=== PATIENT | male | born 1995 ===

== ENCOUNTER 2022-10-21 17:45 | Emergency (ER) | payer MEDICAID ==
[~2022-10-21] VITALS: Ht 195.5 cm; Wt 70.8 kg
[2022-10-21 18:15] LABS: BILIRUBIN,URINE NEGATIVE (NEGATIVE); CLARITY,URINE CLEAR; COLOR,URINE YELLOW; GLUCOSE, URINE (UA) NEGATIVE (NEGATIVE); KETONES,URINE NEGATIVE (NEGATIVE); LEUKOCYTE ESTERASE ,URINE NEGATIVE (NEGATIVE); NITRITE,URINE NEGATIVE (NEGATIVE); PROTEIN,URINE NEGATIVE (NEGATIVE)
[2022-10-21 18:27] LABS: BACTERIA,URINE TRACE /HPF; SQUAMOUS EPITHELIAL CELL,UR RARE /HPF
--- NOTE | 2022-10-21 18:31 | ED General ---
General Chief Complaint: General Problems/Pain Stated Complaint: NAUSEA/BLURRY VISION/WEIGHT LOSS Nursing Triage Note: PATIENT ARRIVES TO ROOM 8 TODAY WITH A C/O BLURRED VISION, LOSS OF 15 LBS IN 2 DAYS, NECK AND UPPER BODY PAIN AND NAUSEA W/O VOMITING THAT STARTED ABOUT ONE HOUR AGO. STATES HE DIDNT FEEL VERY WELL LAST NIGHT AND WHEN HE GOT HOME FROM WORK HE TOOK A KLONIPIN FOR HIS SYMPTOMS. Source of Information: Patient Exam Limitations: No Limitations History of Present Illness Date Seen by Provider: Oct 21, 2022 Time Seen by Provider: 18:15 Initial Comments Patient is a 27-year-old male history of anxiety prescribed clonazepam that he states he rarely uses who presents to the emergency room with a chief complaint of generalized malaise, fatigue, significant weight loss over the last several months. Patient lives in [place] and states he originally went to both [facility] and [facility] in [place] however the wait was too long so he decided to come to [place]. He states in the last couple of days he has developed pain in the anterior jaw that radiates down the front of his neck into his chest and down to his umbilicus. He has not taken anything for the pain. He states he is very fatigued. He states his peak weight was 200 pounds. He states he has been trying to maintain 175 but is now 155. This is unintentional weight loss. He states he had some diarrhea last week that did not continue. No black or bloody stools that he is aware of. He complains of urinary frequency without dysuria or urgency. No cough. No shortness of breath. No fevers or chills. He states he feels like he is always very cold and that his hair may be falling out. 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 His primary care in [place] is Dr. Camacho. He states he saw him about 3 months ago and needed some lab work but the office never followed back up with him. He states he is trying to eat about 3000 riri a day but continues to lose weight. Also complains of some blurry vision today. He feels a little off balance. No double vision, no headache. No significant family medical history. States that he quit using marijuana about a month ago. Does not drink daily alcohol does not smoke cigarettes. Timing/Duration: 1-2 Days, Other (months) Severity: Moderate Associated Systoms: Malaise, Weakness, Other (lethargy) Allergies and Home Medications Allergies Coded Allergies: No Known Drug Allergies (Unverified , 10/21/22) Patient Home Medication List Home Medication List Reviewed: Yes Review of Systems Review of Systems Constitutional: see HPI, malaise EENTM: blurred vision Respiratory: no symptoms reported Cardiovascular: chest pain Gastrointestinal: abdominal pain Musculoskeletal: no symptoms reported Skin: no symptoms reported Psychiatric/Neurological: Anxiety, Other (feels near syncopal/weak/balance issues) Past Yakngwc-Txokvx-Jvotog Hx Patient Social History Tobacco Use?: No Smoking Status: Former Smoker Use of E-Cig and/or Vaping dev: No Substance use?: Yes Substance type: Marijuana Substance frequency: Rarely Alcohol Use?: Yes Alcohol Frequency: Once in a while Immunizations Up To Date Influenza Vaccine Up-to-Date: No; Not Current First/Initial COVID19 Vaccinat: 2 shots 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 oz. kg; 18.00 BMI Method: General Appearance: No Apparent Distress, Thin Eyes: Bilateral Eye Normal Inspection, Bilateral Eye PERRL, Bilateral Eye EOMI HEENT: PERRL/EOMI, Pharynx Normal Neck: Full Range of Motion, Normal Inspection, Supple Respiratory: Lungs Clear, Normal Breath Sounds, No Accessory Muscle Use, No Respiratory Distress Cardiovascular: Regular Rate, Rhythm, Normal Peripheral Pulses (2+ radial) Gastrointestinal: Soft, Guarding (voluntary) Extremity: Normal Capillary Refill, Normal Inspection, Normal Range of Motion, Non Tender, No Calf Tenderness, No Pedal Edema Neurologic/Psychiatric: Alert, Oriented x3, No Motor/Sensory Deficits, artificial stone setter II- XII Norm as Tested, Other (flat affect; normal finger to nose; tongue is midlin e) Skin: Normal Color, Warm/Dry Progress/Results/Core Measures Suspected Sepsis SIRS Temperature: Pulse: 85 Respiratory Rate: 18 Laboratory Tests 10/21/22 18:30: White Blood Count 6.3 Blood Pressure 141 /83 Mean: 102 Laboratory Tests 10/21/22 18:30: Creatinine 0.86, Platelet Count 236, Total Bilirubin 1.0 Results/Orders Lab Results Laboratory Tests Test 10/21/22 17:59 10/21/22 18:10 10/21/22 18:30 Range/Units Glucometer 87 70-110 MG/DL Urine Color YELLOW Urine Clarity CLEAR Urine pH 6.0 5-9 Urine Specific [place] 1.020 1.016-1.022 Urine Protein NEGATIVE NEGATIVE Urine Glucose (UA) NEGATIVE NEGATIVE Urine Ketones NEGATIVE NEGATIVE Urine Nitrite NEGATIVE NEGATIVE Urine Bilirubin NEGATIVE NEGATIVE Urine Urobilinogen 0.2 < = 1.0 MG/DL Urine Leukocyte Esterase NEGATIVE NEGATIVE Urine RBC (Auto) NEGATIVE NEGATIVE Urine RBC NONE /HPF Urine WBC NONE /HPF Urine Squamous Epithelial Cells RARE /HPF Urine Crystals NONE /LPF Urine Bacteria TRACE /HPF Urine Casts NONE /LPF Urine Mucus NEGATIVE /LPF Urine Culture Indicated NO Urine Opiates Screen NEGATIVE NEGATIVE Urine Oxycodone Screen NEGATIVE NEGATIVE Urine Methadone Screen NEGATIVE NEGATIVE Urine Propoxyphene Screen NEGATIVE NEGATIVE Urine Barbiturates Screen NEGATIVE NEGATIVE Ur Tricyclic Antidepressants Screen NEGATIVE NEGATIVE Urine Phencyclidine Screen NEGATIVE NEGATIVE Urine Amphetamines Screen NEGATIVE NEGATIVE Urine Methamphetamines Screen NEGATIVE NEGATIVE Urine Benzodiazepines Screen NEGATIVE NEGATIVE Urine Cocaine Screen NEGATIVE NEGATIVE Urine Cannabinoids Screen POSITIVE H NEGATIVE White Blood Count 6.3 4.3-11.0 10^3/uL Red Blood Count 4.95 4.30-5.52 10^6/uL Hemoglobin 15.4 13.3-17.7 g/dL Hematocrit 42 40-54 % Mean Corpuscular Volume 84 80-99 fL Mean Corpuscular Hemoglobin 31 25-34 pg Mean Corpuscular Hemoglobin Concent 37 H 32-36 g/dL Red Cell Distribution Width 12.5 10.0-14.5 % Platelet Count 236 130-400 10^3/uL Mean Platelet Volume 9.1 9.0-12.2 fL Immature Granulocyte % (Auto) 0 % Neutrophils (%) (Auto) 69 42-75 % Lymphocytes (%) (Auto) 23 12-44 % Monocytes (%) (Auto) 7 0-12 % Eosinophils (%) (Auto) 1 0-10 % Basophils (%) (Auto) 1 0-10 % Neutrophils # (Auto) 4.3 1.8-7.8 10^3/uL Lymphocytes # (Auto) 1.4 1.0-4.0 10^3/uL Monocytes # (Auto) 0.5 0.0-1.0 10^3/uL Eosinophils # (Auto) 0.1 0.0-0.3 10^3/uL Basophils # (Auto) 0.0 0.0-0.1 10^3/uL Immature Granulocyte # (Auto) 0.0 0.0-0.1 10^3/uL Sodium Level 142 135-145 MMOL/L Potassium Level 3.6 3.6-5.0 MMOL/L Chloride Level 105 98-107 MMOL/L Carbon Dioxide Level 26 21-32 MMOL/L Anion Gap 11 5-14 MMOL/L Blood Urea Nitrogen 19 H 7-18 MG/DL Creatinine 0.86 0.60-1.30 MG/DL Estimat Glomerular Filtration Rate 122 BUN/Creatinine Ratio 22 Glucose Level 89 70-105 MG/DL Calcium Level 10.2 H 8.5-10.1 MG/DL Corrected Calcium 8.5-10.1 MG/DL Total Bilirubin 1.0 0.1-1.0 MG/DL Aspartate Amino Transf (AST/SGOT) 35 H 5-34 U/L Alanine Aminotransferase (ALT/SGPT) 33 0-55 U/L Alkaline Phosphatase 55 40-136 U/L Total Protein 7.4 6.4-8.2 GM/DL Albumin 5.0 H 3.2-4.5 GM/DL TSH [place] Testing 1.05 0.35-4.94 UIU/ML My Orders Orders - AUSTYN VILLASEÑOR MD Ed Iv/Invasive Line Start (10/21/22 18:31) Cbc With Automated Diff (10/21/22 18:31) Comprehensive Metabolic Panel (10/21/22 18:31) Thyroid Analyzer (10/21/22 18:31) Drug Screen Stat (Urine) (10/21/22 18:31) Ct Head Wo (10/21/22 19:55) Vital Signs/I&O 10/21/22 10/21/22 17:55 21:02 Temp 36.8 Pulse 85 85 Resp 18 18 B/P (MAP) 141/83 (102) 113/83 Pulse Ox 98 97 O2 Delivery Room Air Room Air Capillary Refill : Less Than 3 Seconds Blood Pressure Mean: 102 Progress Note : Time: 20:50 Progress Note Patient seen and evaluated by me. Evaluation today includes physical exam, CBC, chemistry, UA, urine drug screen, thyroid analyzer. Patient also had CT of the head noncontrast. Pertinent physical exam findings thin appearing 27-year-old male, seems slightly withdrawn, speaks in a quiet voice. Vital signs are stable. HEENT exam unremarkable. No palpable thyroid abnormality. Oral mucosa is moist. Heart is regular, lungs are clear. Abdomen is soft and nontender. He has no rashes. No neurologic deficits. Differential diagnosis based on history and physical exam hypothyroidism, metabolic derangement/diabetes, malignancy, poor nutrition secondary to drug use Labs independently reviewed by me. CBC is normal. Chemistry is unremarkable, urinalysis does not reveal any evidence of infection. Urine drug screen positive for THC. TSH is normal. CT scan of the head without contrast done secondary to patient's reported significant weight loss, blurry/abnormal vision and self-reported balance and coordination issues. He did not demonstrate any focal neurologic deficits, no ataxia. Low suspicion for thyroid disease based on normal TSH. Chemistry is normal not reflecting any significant dehydration or electrolyte imbalance. His blood sugar was normal. No concerning findings on CT for space-occupying lesion. He is quite thin but does not appear cachectic. He does have a primary care physician in [place] whom he has not seen in about 3 months. I strongly encouraged him to make a follow-up appointment. No significant concerning findings on this visit to the emergency department I did however advise him that the emergency room cannot identify all causes for rapid weight loss. I encouraged him to eat small frequent meals and to only drink fluids with his meals so that he does not feel full and not eat. Encouraged continued cessation of marijuana. Advised that maybe he start an acid registered pharmacy technician such as [id number] Pepcid or Prilosec. Patient verbalized understanding of the plan of care. All questions are sought and answered. Patient is stable for discharge. Diagnostic Imaging Diagonstic Imaging: CT Comments [facility], [place] NAME: ESTELA MCCARTHY MED REC#: [id number] PT STATUS: REG ER : 1995 PHYSICIAN: AUSTYN VILLASEÑOR MD ADMIT DATE: 10/21/22/ER Draft Date of Exam:10/21/22 CT HEAD WO EXAMINATION: CT head without contrast. TECHNIQUE: Multiple contiguous axial images were obtained through the brain without the use of intravenous contrast. All CT scans use one or more of the following dose optimizing techniques: automated exposure control, MA and/or KvP adjustment based on patient size and exam type or iterative reconstruction. HISTORY: Blurry vision, off balance COMPARISON: None available. FINDINGS: There is a patent cavum septum pellucidum which is a normal congenital variant. The ventricles and sulci are otherwise normal. No abnormal attenuation of brain parenchyma is present. No acute intracranial hemorrhage or abnormal extra-axial fluid collection is present. No hyperdense vessel. The calvarium is intact. The mastoid air cells are clear. The visualized paranasal sinuses are clear. The orbits are normal. IMPRESSION: No acute intracranial abnormality. Dictated on workstation # [id number] Dict: 10/21/222033 Trans: 10/21/222035 [facility] [id number] Interpreted by: CRISTINA WELLINGTON DO Electronically signed by: Departure Impression Primary Impression: Weakness Additional Impression: Weight loss, abnormal Disposition: 01 HOME, SELF-CARE Condition: Stable Departure-Patient Inst. Decision time for Depature: 20:57 Referrals: NO,LOCAL PHYSICIAN (PCP/Family) Primary Care Physician Patient Instructions: Minimize Weight Loss Add. Discharge Instructions: Please call and follow up with your primary care doctor next week. Your labs all look normal today (blood count, chemistry and liver functions, thyroid).. If you develop any new or concerning, emergent symptoms, please return to the Emergency Department for re-evaluation. AUSTYN VILLASEÑOR MD Oct 21, 2022 18:31
[2022-10-21 18:36] LABS: BASOPHILS % (AUTO) 1 % (0-10); EOSINOPHILS # (AUTO) 0.1 10^3/uL (0.0-0.3); EOSINOPHILS % (AUTO) 1 % (0-10); HEMATOCRIT 42 % (40-54); HEMOGLOBIN 15.4 g/dL (13.3-17.7); LYMPHOCYTES # (AUTO) 1.4 10^3/uL (1.0-4.0); LYMPHOCYTES % (AUTO) 23 % (12-44); MEAN CORPUSCULAR HEMOGLOBIN 31 pg (25-34); MEAN CORPUSCULAR HGB CONC 37 g/dL (32-36); MEAN CORPUSCULAR VOLUME 84 fL (80-99); MEAN PLATELET VOLUME 9.1 fL (9.0-12.2); MONOCYTES # (AUTO) 0.5 10^3/uL (0.0-1.0); MONOCYTES % (AUTO) 7 % (0-12); NEUTROPHILS # (AUTO) 4.3 10^3/uL (1.8-7.8); NEUTROPHILS % (AUTO) 69 % (42-75); PLATELET COUNT 236 10^3/uL (130-400); WHITE BLOOD COUNT 6.3 10^3/uL (4.3-11.0)
[2022-10-21 18:47] LABS: CHLORIDE 105 MMOL/L (98-107); POTASSIUM 3.6 MMOL/L (3.6-5.0); SODIUM 142 MMOL/L (135-145)
[2022-10-21 18:48] LABS: AMPHETAMINE SCREEN, URINE NEGATIVE (NEGATIVE); BARBITURATE SCREEN URINE NEGATIVE (NEGATIVE); BENZODIAZEPINES SCREEN URINE NEGATIVE (NEGATIVE); CANNABINOID SCREEN, URINE POSITIVE (NEGATIVE); COCAINE SCREEN URINE NEGATIVE (NEGATIVE); METHADONE STAT NEGATIVE (NEGATIVE); OPIATE SCREEN URINE NEGATIVE (NEGATIVE); OXYCODONE STAT NEGATIVE (NEGATIVE); PROPOXYPHENE STAT NEGATIVE (NEGATIVE); TRICYCLIC ANTIDEPRESSANTS SCRE NEGATIVE (NEGATIVE)
[2022-10-21 18:48] LABS: CALCIUM 10.2 MG/DL (8.5-10.1)
[2022-10-21 18:49] LABS: GLUCOSE 89 MG/DL (70-105); TOTAL PROTEIN 7.4 GM/DL (6.4-8.2)
[2022-10-21 18:50] LABS: CARBON DIOXIDE 26 MMOL/L (21-32)
[2022-10-21 18:52] LABS: ALKALINE PHOSPHATASE 55 U/L (40-136)
[2022-10-21 18:53] LABS: CREATININE SERUM 0.86 MG/DL (0.60-1.30); GFR ESTIMATED 122
[2022-10-21 18:54] LABS: BUN/CREATININE RATIO 22
[2022-10-21 18:56] LABS: ALANINE AMINOTRANSFERASE 33 U/L (0-55)
[2022-10-21 19:17] LABS: TSH (THYROID ANALYZER) 1.05 UIU/ML (0.35-4.94)
--- NOTE | 2022-10-21 20:37 | Diagnostic Imaging Report ---
EXAMINATION: CT head without contrast. TECHNIQUE: Multiple contiguous axial images were obtained through the brain without the use of intravenous contrast. All CT scans use one or more of the following dose optimizing techniques: automated exposure control, MA and/or KvP adjustment based on patient size and exam type or iterative reconstruction. HISTORY: Blurry vision, off balance COMPARISON: None available. FINDINGS: There is a patent cavum septum pellucidum which is a normal congenital variant. The ventricles and sulci are otherwise normal. No abnormal attenuation of brain parenchyma is present. No acute intracranial hemorrhage or abnormal extra-axial fluid collection is present. No hyperdense vessel. The calvarium is intact. The mastoid air cells are clear. The visualized paranasal sinuses are clear. The orbits are normal. IMPRESSION: No acute intracranial abnormality. Dictated by: Dictated on workstation # [id number]
[2022-10-21 21:02] VITALS: BP 113/83
== END 2022-10-21 21:06 | disposition home or self-care (01) ==
LOC: ER 17:48
DX: R53.1 Weakness (principal); R63.4 Abnormal weight loss; H53.8 Other visual disturbances; F41.9 Anxiety disorder, unspecified; Z79.899 Other long term (current) drug therapy; Z87.891 Personal history of nicotine dependence
CPT/HCPCS: 36415; 70450; 80053; 80306; 81000; 82947; 84443; 85025

== ENCOUNTER 2023-01-24 06:15 | Emergency (ER) | payer MEDICAID ==
[~2023-01-24] VITALS: Ht 195 cm; Wt 86.1 kg
--- NOTE | 2023-01-24 06:48 | ED Cardiac General ---
History of Present Illness General Chief Complaint: Chest Pain Stated Complaint: CHEST TIGHTNESS,LEFT ARM TIGHTNESS Nursing Triage Note: SINCE 3AM CHEST PAIN TIGHTNESS, WITH LEFT FORARM PAIN. DENIES SOB Source: patient Exam Limitations: no limitations History of Present Illness Date Seen by Provider: Jan 24, 2023 Time Seen by Provider: 06:34 Initial Comments Patient is a 27-year-old male who presents to the emergency room with a chief complaint of left-sided chest "tightness", left upper arm discomfort and left axillary pain. Patient states that it started around 3 AM. He was awake, not doing any activities. He denies any associated symptoms such as dizziness, lightheadedness, palpitations, shortness of breath, nausea or sweating. Nothing really makes the pain any better or any worse. He does not take any medications for the pain. He has no history of hypertension, diabetes or hyperlipidemia. He does not take any medications. He is not a smoker. He states he had a grandfather who from a heart attack in his late 50s. Patient denies any recent illnesses, congestion, fever. Currently rates the discomfort a "3". He is denying any medications for pain at this time. Does not want aspirin or Toradol. Timing/Duration: 4-6 hours Severity: mild Location: other (left chest upper arm and axilla) Activities at Onset: none NTG SL FLOOR SPACE ALLOCATOR: No ASA po FLOOR SPACE ALLOCATOR: No Associated Systoms: Denies Symptoms Allergies and Home Medications Allergies Coded Allergies: No Known Drug Allergies (Unverified , 10/21/22) Patient Home Medication List Home Medication List Reviewed: Yes Review of Systems Review of Systems Constitutional: see HPI EENTM: No Symptoms Reported Respiratory: No Symptoms Reported Cardiovascular: Chest Pain Gastrointestinal: No Symptoms Reported Genitourinary: No Symptoms Reported Musculoskeletal: other (left arm and axilla) Skin: no symptoms reported All Other Systems Reviewed Negative Unless Noted: Yes Past Klnnglw-Hjcqrl-Jxivoj Hx Immunizations Up To Date First/Initial COVID19 Vaccinat: 2 shots Second COVID19 Vaccination Kishan: 2 shots Third COVID19 Vaccination Date: 2 shots Past Medical History Surgery/Hospitalization HX: ANXIETY UMBILICA HERNIA, TONSILS, TUBES IN EARS A CHILD Physical Exam Vital Signs Vital Signs - First Documented 01/24/23 01/24/23 06:22 07:45 Pulse 93 Resp 20 B/P (MAP) 130/88 Pulse Ox 96 O2 Delivery Room Air Capillary Refill : Less Than 3 Seconds Height, Weight, BMI Height: '" Weight: lbs. oz. kg; 22.00 BMI Method: General Appearance: No Apparent Distress, Thin HEENT: PERRL/EOMI Neck: Normal Inspection Respiratory: Lungs Clear, Normal Breath Sounds, No Accessory Muscle Use, No Respiratory Distress Cardiovascular: Regular Rate, Rhythm Gastrointestinal: Non Tender, Soft Extremity: Normal Capillary Refill, Normal Inspection, Normal Range of Motion, Non Tender, No Calf Tenderness, No Pedal Edema Neurologic/Psychiatric: Alert, Oriented x3, No Motor/Sensory Deficits, Normal Mood/Affect Skin: Normal Color, Warm/Dry Progress/Results/Core Measures Results/Orders Lab Results Laboratory Tests Test 01/24/23 06:55 Range/Units White Blood Count 6.9 4.3-11.0 10^3/uL Red Blood Count 4.86 4.30-5.52 10^6/uL Hemoglobin 15.1 13.3-17.7 g/dL Hematocrit 41 40-54 % Mean Corpuscular Volume 85 80-99 fL Mean Corpuscular Hemoglobin 31 25-34 pg Mean Corpuscular Hemoglobin Concent 37 H 32-36 g/dL Red Cell Distribution Width 12.4 10.0-14.5 % Platelet Count 230 130-400 10^3/uL Mean Platelet Volume 8.4 L 9.0-12.2 fL Immature Granulocyte % (Auto) 0 % Neutrophils (%) (Auto) 70 42-75 % Lymphocytes (%) (Auto) 19 12-44 % Monocytes (%) (Auto) 10 0-12 % Eosinophils (%) (Auto) 1 0-10 % Basophils (%) (Auto) 1 0-10 % Neutrophils # (Auto) 4.8 1.8-7.8 10^3/uL Lymphocytes # (Auto) 1.3 1.0-4.0 10^3/uL Monocytes # (Auto) 0.7 0.0-1.0 10^3/uL Eosinophils # (Auto) 0.1 0.0-0.3 10^3/uL Basophils # (Auto) 0.0 0.0-0.1 10^3/uL Immature Granulocyte # (Auto) 0.0 0.0-0.1 10^3/uL Sodium Level 137 135-145 MMOL/L Potassium Level 3.2 L 3.6-5.0 MMOL/L Chloride Level 102 98-107 MMOL/L Carbon Dioxide Level 23 21-32 MMOL/L Anion Gap 12 5-14 MMOL/L Blood Urea Nitrogen 15 7-18 MG/DL Creatinine 1.11 0.60-1.30 MG/DL Estimat Glomerular Filtration Rate 94 BUN/Creatinine Ratio 14 Glucose Level 103 70-105 MG/DL Calcium Level 9.6 8.5-10.1 MG/DL Troponin I < 0.028 <0.028 NG/ML My Orders Orders - AUSTYN VILLASEÑOR MD Ekg Tracing (01/24/23 06:24) Ed Iv/Invasive Line Start (01/24/23 06:44) Cbc With Automated Diff (01/24/23 06:44) Basic Metabolic Panel (01/24/23 06:44) Troponin I Lety (01/24/23 06:44) Vital Signs/I&O 01/24/23 01/24/23 06:22 07:45 Pulse 93 88 Resp 20 16 B/P (MAP) 130/88 Pulse Ox 96 98 O2 Delivery Room Air Room Air Progress Progress Note : Time: 07:34 Progress Note Patient seen and evaluated by me. Evaluation today includes physical exam, EKG, CBC, basic metabolic panel and serum troponin. Physical exam pertinent for thin well-developed male, no acute distressdoes seem slightly anxious. Vital signs are stable. Differential diagnosis includes musculoskeletal chest pain, NSTEMI, angina, GERD. Labs, EKG independently reviewed and interpreted by me. EKG sinus tachycardia at 97 beats a minute, right bundle branch block, no ST segment changes. CBC is normal, basic metabolic panel pertinent only for slightly low potassium at 3.2. Serum troponin approximately 3 hours and 45 minutes after the onset of discomfort is undetectable. Again patient declined any medications including aspirin. I did job counselor him on the benefits of aspirin in the setting of chest pain and he continued to decline. Reassurance provided that this is not any type of cardiac pain. Recommended conservative treatment at home including Tylenol or ibuprofen. Return precautions provided in both verbal and written format. Patient is also encouraged to follow-up with primary care physician. All questions are sought and answered Initial ECG Impression Date: Jan 24, 2023 Initial ECG Impression Time: 06:35 Initial ECG Rate: 97 Initial ECG Rhythm: Normal Sinus Initial ECG Intervals [place] 140 QRS 98 QTc 394 Comment tachycardia - HR97 RBBB NSSTW changes inferiorly Departure Impression Primary Impression: Atypical chest pain Disposition: 01 HOME, SELF-CARE Condition: Stable Departure-Patient Inst. Decision time for Depature: 07:37 Referrals: [facility] NO,LOCAL PHYSICIAN (PCP) Primary Care Physician Patient Instructions: Chest Pain That Is Not Caused by the Heart (DC) Add. Discharge Instructions: Drink plenty fluids to stay well-hydrated. You can try whkc-[id number]-[id number] ibuprofen or Tylenol as needed for discomfort. Please follow packaging instructions. Acid reflux can also cause "chest pain" symptoms. Vgte-kjp-sqzpxbo generic Prilosec or Pepcid may help with your symptoms as well. You should follow-up with a primary care provider. Back to the emergency department if you have worsening chest pain especially with palpitations, fever, shortness of breath or any other emergent, concerning symptoms. Work/School Note: Work Release Form Date Seen in the Emergency Department: Jan 24, 2023 Return to Work: Jan 25, 2023 AUSTYN VILLASEÑOR MD Jan 24, 2023 06:48
[2023-01-24 07:02] LABS: BASOPHILS % (AUTO) 1 % (0-10); EOSINOPHILS # (AUTO) 0.1 10^3/uL (0.0-0.3); EOSINOPHILS % (AUTO) 1 % (0-10); HEMATOCRIT 41 % (40-54); HEMOGLOBIN 15.1 g/dL (13.3-17.7); LYMPHOCYTES # (AUTO) 1.3 10^3/uL (1.0-4.0); LYMPHOCYTES % (AUTO) 19 % (12-44); MEAN CORPUSCULAR HEMOGLOBIN 31 pg (25-34); MEAN CORPUSCULAR HGB CONC 37 g/dL (32-36); MEAN CORPUSCULAR VOLUME 85 fL (80-99); MEAN PLATELET VOLUME 8.4 fL (9.0-12.2); MONOCYTES # (AUTO) 0.7 10^3/uL (0.0-1.0); MONOCYTES % (AUTO) 10 % (0-12); NEUTROPHILS # (AUTO) 4.8 10^3/uL (1.8-7.8); NEUTROPHILS % (AUTO) 70 % (42-75); PLATELET COUNT 230 10^3/uL (130-400); WHITE BLOOD COUNT 6.9 10^3/uL (4.3-11.0)
[2023-01-24 07:11] LABS: CHLORIDE 102 MMOL/L (98-107); POTASSIUM 3.2 MMOL/L (3.6-5.0); SODIUM 137 MMOL/L (135-145)
[2023-01-24 07:13] LABS: CALCIUM 9.6 MG/DL (8.5-10.1); GLUCOSE 103 MG/DL (70-105)
[2023-01-24 07:15] LABS: CARBON DIOXIDE 23 MMOL/L (21-32)
[2023-01-24 07:17] LABS: CREATININE SERUM 1.11 MG/DL (0.60-1.30); GFR ESTIMATED 94
[2023-01-24 07:18] LABS: BUN/CREATININE RATIO 14
[2023-01-24 07:45] VITALS: BP 130/88
== END 2023-01-24 07:45 | disposition home or self-care (01) ==
LOC: EDUNIT# 06:15 → ER 06:17
DX: R07.89 Other chest pain (principal); I45.10 Unspecified right bundle-branch block; R00.0 Tachycardia, unspecified; E87.6 Hypokalemia
CPT/HCPCS: 36415; 80048; 84484; 85025; 93005